=== PATIENT | female | born 1995 | race Caucasian/White ===

== ENCOUNTER 2019-04-09 19:01 | Outpatient (CLI) | payer OTHER ==
[~2019-04-09] VITALS: Ht 160 cm; Wt 70.3 kg
== END 2019-04-10 17:00 | disposition home or self-care (01) ==
LOC: EDSTATUS 19:01 → OBS/DEL 19:03
DX: O60.03 Preterm labor without delivery, third trimester (principal); O34.211 Maternal care for low transverse scar from previous cesarean delivery; O43.213 Placenta accreta, third trimester
CPT/HCPCS: 72197; 74181

== ENCOUNTER 2019-04-27 08:41 | Inpatient (IN) | payer OTHER ==
[~2019-04-27] VITALS: Ht 160 cm; Wt 2.7 kg
[2019-04-27] MEDS ORDERED: PRENATAL TABLE1 EAC4 PO (10:30)
== END 2019-04-30 17:02 | disposition home or self-care (01) | DRG 785 ==
LOC: OB/GYN 08:41 → LDR 08:41 → O/R 14:58 → OB/GYN 16:39
PROVIDERS: ADMIT Specialist
PROC: 4A1HXCZ Monitoring of Products of Conception, Cardiac Rate, External Approach (ICD-10-PCS; 2019-04-27)
PROC: 0UB70ZZ Excision of Bilateral Fallopian Tubes, Open Approach (ICD-10-PCS; 2019-04-27)
PROC: 4A033R1 Measurement of Arterial Saturation, Peripheral, Percutaneous Approach (ICD-10-PCS; 2019-04-27)
PROC: 10D00Z1 Extraction of Products of Conception, Low, Open Approach (ICD-10-PCS; principal; 2019-04-27 11:00)
DX: O34.211 Maternal care for low transverse scar from previous cesarean delivery (principal); O82 Encounter for cesarean delivery without indication; Z30.2 Encounter for sterilization; Z3A.39 39 weeks gestation of pregnancy; Z37.0 Single live birth; O75.82 Onset (spontaneous) of labor after 37 completed weeks of gestation but before 39 completed weeks gestation, with delivery by (planned) cesarean section